=== PATIENT | female | born 1985 | race Hispanic/Latino ===

== ENCOUNTER 2021-02-05 01:05 | Emergency (ER) | payer MEDICAID, OTHER ==
[~2021-02-05] VITALS: Ht 149.9 cm; Wt 79.8 kg
[2021-02-05 01:55] VITALS: BP 132/78
[2021-02-05 01:56] LABS: APPEARANCE,URINE Clear (CLEAR); BILIRUBIN,URINE Negative (NEGATIVE); COLOR,URINE Dark Yellow (YELLOW); GLUCOSE, URINE (UA) Negative (NEGATIVE); KETONES,URINE Trace mg/dL (NEGATIVE); LEUKOCYTE ESTERASE ,URINE Trace (NEGATIVE); NITRATE,URINE Positive (NEGATIVE); OCCULT BLOOD,URINE Negative (NEGATIVE); PH,URINE 5.5 (5.0-8.0); PROTEIN,URINE POS 2+ mg/dL (NEGATIVE)
[2021-02-05 01:59] LABS: HCG,QUAL RESULT NEGATIVE (NEGATIVE)
[2021-02-05 02:04] LABS: RBC,URINE 0-1 /HPF (0-1)
[2021-02-05 02:05] LABS: MUCUS,URINE Few LPF (None Seen); SQUAMOUS EPITHELIAL CELL,UR Few /HPF (0-2)
[2021-02-05 02:07] LABS: BACTERIA,URINE None Seen /HPF (None Seen)
[2021-02-05] MEDS ORDERED: PHENAZOPYRIDINE HCL 200 MG TABLET PO ONE (02:30)
[2021-02-05] MEDS ORDERED: KETOROLAC 60 MG VIAL (30MG/ML) IM ONE (02:30)
[2021-02-05] MEDS ORDERED: CEFTRIAXONE 1G VIAL IM ONE (02:30)
[2021-02-05] MEDS ORDERED: LIDOCAINE HCL-MPF 1% 2ML VIAL ONE (02:40)
[2021-02-05] MEDS ORDERED: PHEN-847 PO (03:10)
[2021-02-05] MEDS ORDERED: MACR100 PO (03:10)
[2021-02-05 03:20] VITALS: BP 124/74
== END 2021-02-05 03:22 | disposition home or self-care (01) ==
LOC: EDH 01:05
DX: N30.00 Acute cystitis without hematuria (principal); Z79.1 Long term (current) use of non-steroidal anti-inflammatories (NSAID)
CPT/HCPCS: 81001; 81025; 87088; 96372 ×2; 99284; J0696; J1885; J3490

== ENCOUNTER 2022-07-05 03:20 | Emergency (ER) | payer MEDICAID, OTHER ==
[~2022-07-05] VITALS: Ht 154.9 cm; Wt 81.2 kg
[~2022-07-05 03:20] MED LIST: MACR100 PO; PHEN-847 PO
[2022-07-05] MEDS ORDERED: ACETAMINOPHEN 500 MG TABLET PO ONE (04:00)
[2022-07-05 04:40] LABS: APPEARANCE,URINE CLEAR (CLEAR); BILIRUBIN,URINE NEGATIVE (NEGATIVE); COLOR,URINE COLORLESS (YELLOW); GLUCOSE, URINE (UA) NEGATIVE (NEGATIVE); KETONES,URINE NEGATIVE (NEGATIVE); LEUKOCYTE ESTERASE ,URINE NEGATIVE Leu/uL (NEGATIVE); NITRATE,URINE NEGATIVE (NEGATIVE); OCCULT BLOOD,URINE LARGE (NEGATIVE); PH,URINE 7.5 (5.0-8.0); PROTEIN,URINE NEGATIVE (NEGATIVE); UROBILINOGEN,URINE 0.2 mg/dL (0.2-1.0)
[2022-07-05 04:45] LABS: BACTERIA,URINE RARE /HPF (None Seen); MUCUS,URINE RARE LPF (None Seen); RBC,URINE 51-100 /HPF (0-1); SQUAMOUS EPITHELIAL CELL,UR RARE /HPF (0-2)
[2022-07-05 04:59] LABS: BASOPHILS % (AUTO) 0.1 % (0.0-5.0); EOSINOPHILS % (AUTO) 0.1 % (0.0-8.0); HEMATOCRIT 30.8 % (36-48); LYMPHOCYTES % (AUTO) 8.4 % (21.0-51.0); MEAN CORPUSCULAR HEMOGLOBIN 21.3 pg (27.0-33.0); MEAN CORPUSCULAR HGB CONC 30.8 g/dL (32.0-36.0); MEAN CORPUSCULAR VOLUME 69.1 fL (79-99); MONOCYTES % (AUTO) 5.6 % (3.0-13.0); NEUTROPHILS % (AUTO) 85.2 % (40.0-77.0); PLATELET COUNT (AUTO) 318 K/uL (130-400); RED BLOOD CELL COUNT(AUTO) 4.46 MIL/uL (4.00-5.50); RED CELL DISTRIBUTION WIDTH 18.1 % (11.0-15.5); WHITE BLOOD COUNT (AUTO) 13.9 K/uL (4.8-10.8)
[2022-07-05 05:23] LABS: ALBUMIN 3.6 g/dL (3.5-5.0); CREATININE 0.7 mg/dL (0.5-1.5); POTASSIUM 3.3 mmol/L (3.5-5.1); TOTAL PROTEIN, SERUM 8.1 g/dL (6.0-8.3)
[2022-07-05] MEDS ORDERED: KETOROLAC 30MG VIAL (30MG/ML) IVP ONE (06:00)
[2022-07-05] MEDS ORDERED: 0.9%NACL 1000ML 1,000 ML IV ONE (06:00)
[2022-07-05] MEDS ORDERED: IOHEXOL-350 50ML VIAL IV ONE (07:00)
[2022-07-05] MEDS ORDERED: CEPH500B PO (09:00)
[2022-07-05 09:10] VITALS: BP 115/69
== END 2022-07-05 09:12 | disposition home or self-care (01) ==
LOC: EDH 03:20
DX: J02.0 Streptococcal pharyngitis (principal); Z90.49 Acquired absence of other specified parts of digestive tract; Z98.890 Other specified postprocedural states
CPT/HCPCS: 99285; 74177; 96374; 71046; 87635; 80053; 83690; 85025; 87880; 87804 ×2; 81001; 81025; 36415; C9803; J7030; J1885; Q9967